=== PATIENT | female | born 1985 | race American Indian/Alaskan Native ===

== ENCOUNTER 2022-07-25 13:18 | Emergency (ER) | payer BC, OTHER ==
[~2022-07-25] VITALS: Ht 167.6 cm; Wt 74.8 kg
[~2022-07-25 13:18] MED LIST: CALCIUM 600 +1 EAC6 PO; DOCUSATE SODIU100 MG PO; PRENAPLUS TABL1 EACH PO; VITAMIN D35000 UNIT; VITAMIN D35000 UNIT PO
[2022-07-25] MEDS ORDERED: VITAMIN B122500 MCG PO (13:34)
[2022-07-25] MEDS ORDERED: VITAMIN C500 M1 PO (13:34)
--- NOTE | 2022-07-25 20:25 | EKG ---
[facility] [address] [facility] [place], [place] [address] Signed Sinus rhythm with marked sinus arrhythmia Otherwise normal ECG No previous ECGs available Confirmed by SPENSER BELCHER MD ([id number]) on 07/25/2022 8:24:44 PM Electronically Signed By: SPENSER BELCHER MD 07/25/222024 PATIENT NAME: DL AUGUSTINE Electrocardiogram DATE OF : 81 PHYSICIAN: SPENSER BELCHER MD REPORT #: [id number] REPORT IS CONFIDENTIAL AND NOT TO BE RELEASED WITHOUT AUTHORIZATION
== END 2022-07-25 14:16 | disposition home or self-care (01) ==
LOC: ED 13:18
DX: R07.89 Other chest pain (principal); Z88.8 Allergy status to other drugs, medicaments and biological substances; Z79.899 Other long term (current) drug therapy
CPT/HCPCS: 71045; 93005; 93010; 99285-25

== ENCOUNTER 2024-12-10 07:10 | Emergency (ER) | payer BC, OTHER ==
[~2024-12-10] VITALS: Ht 167.6 cm; Wt 85.3 kg
[~2024-12-10 07:10] MED LIST changes: +VITAMIN B122500 MCG PO; +VITAMIN C500 M1 PO
[2024-12-10] MEDS ORDERED: OCREVUS300 MG/10 IV (07:24)
[2024-12-10] MEDS ORDERED: SODIUM CHLORIDE 0.9% 1,000 ML IV PRN (07:30)
[2024-12-10] MEDS ORDERED: ondansetron HCL 4 MG/2 ML VIAL IV ONE (07:30)
[2024-12-10] MEDS ORDERED: ONDANSETRON ODT4 MG PO (07:45)
[2024-12-10 07:53] LABS: BASOPHILS 0.3 % (0-2); EOSINOPHILS 0.1 % (0-6); HEMATOCRIT 42.1 % (35.0-50.0); HEMOGLOBIN 14.5 g/dL (12.0-18.0); LYMPHOCYTES 4.5 % (24-44); MCH 28.5 (27-36); MCHC 34.5 g/dl (30-36); MCV 82.7 fl (81-99); MONOCYTES 5.7 % (0-12); NEUTROPHILS 89.4 % (39-80); PLATELET COUNT 178 K/uL (140-440)
[2024-12-10 08:06] LABS: ALBUMIN 3.6 g/dL (3.4-5.0); ALBUMIN/GLOBULIN RATIO 0.88 (1.1-2.4); ANION GAP 16.1 (7-21); BILIRUBIN, TOTAL 0.6 ng/dL (0.2-1.0); BUN/CREATININE RATIO 7.81 (6.0-28.6); CREATININE, SERUM 0.64 mg/dL (0.55-1.02); POTASSIUM 3.1 mmol/L (3.5-5.1); PROTEIN, TOTAL 7.7 g/dL (6.4-8.2)
[2024-12-10] MEDS ORDERED: KETOROLAC TROMETHAMINE 30 MG/ML VIAL IV ONE (08:15)
[2024-12-10 11:01] VITALS: BP 93/66
== END 2024-12-10 11:01 | disposition home or self-care (01) ==
LOC: ED 07:10
PROVIDERS: Emergency Medicine
DX: J10.1 Influenza due to other identified influenza virus with other respiratory manifestations (principal); E86.0 Dehydration; Z88.1 Allergy status to other antibiotic agents; Z79.899 Other long term (current) drug therapy
CPT/HCPCS: 36415; 51798; 80053; 84703; 85025; 96361; 96374; 96375; 99284-25; J1885; J2405; J7030

== ENCOUNTER 2024-12-15 14:30 | Emergency (ER) | payer BC, OTHER ==
[~2024-12-15] VITALS: Ht 167.6 cm; Wt 85.3 kg
[~2024-12-15 14:30] MED LIST changes: +OCREVUS300 MG/10 IV; +ONDANSETRON ODT4 MG PO
--- OUTSIDE RECORDS SUMMARY | 2024-12-15 14:37 | XMS ---
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 [facility] has no Care Guidelines for this patient. [facility]: Visits indicate total known visits. ED/C VISIT TRACKING (12 MO.) 12[facility]15[facility]24 14[facility] [place] [facility] COMPLAINT: - SHORTNESS OF BREATH 12/10/2024 07:10 [facility] [place] TYPE: Emergency COMPLAINT: - FLU SYMPTOMS DIAGNOSES: - Allergy status to other antibiotic agents - Dehydration - Influenza due to other identified influenza virus with other respiratory manifestations - Nausea with vomiting, unspecified - Other care home (current) drug therapy INPATIENT VISIT TRACKING (12 MO.) No inpatient visits to display in this time frame [email or web address]
[2024-12-15] MEDS ORDERED: ALBUTEROL/IPRATROPIUM 3 ML NEB INH PRN (14:45)
[2024-12-15] MEDS ORDERED: IBUPROFEN400 MG PO (14:49)
[2024-12-15 14:58] LABS: BASOPHILS 0.1 % (0-2); EOSINOPHILS 0.4 % (0-6); HEMOGLOBIN 12.7 g/dL (12.0-18.0); LYMPHOCYTES 3.4 % (24-44); MCH 27.3 (27-36); MCHC 33.3 g/dl (30-36); MONOCYTES 2.9 % (0-12); NEUTROPHILS 93.2 % (39-80); PLATELET COUNT 309 K/uL (140-440); RBC 4.64 M/ul (4.3-5.7); RDW 14.7 (10.5-15.0)
[2024-12-15 15:16] LABS: ALBUMIN/GLOBULIN RATIO 0.49 (1.1-2.4); BILIRUBIN, TOTAL 1.1 mg/dL (0.2-1.0); BUN/CREATININE RATIO 12.67 (6.0-28.6); CALCIUM 8.6 mg/dL (8.5-10.1); CREATININE, SERUM 0.71 mg/dL (0.55-1.02); MAGNESIUM 2.2 mg/dL (1.8-2.4); PROTEIN, TOTAL 6.1 g/dL (6.4-8.2)
[2024-12-15] MEDS ORDERED: SODIUM CHLORIDE 0.9% 1,000 ML IV ONE (15:30)
[2024-12-15] MEDS ORDERED: KETOROLAC TROMETHAMINE 30 MG/ML VIAL IV ONE (15:30)
[2024-12-15] MEDS ORDERED: OXYMETAZOLINE HCL 30 ML BTL NAS ONE (15:30)
[2024-12-15] MEDS ORDERED: ondansetron HCL 4 MG/2 ML VIAL IV ONE (15:30)
[2024-12-15] MEDS ORDERED: AZITHROMYCIN/DEXTROSE 500 MG/250 ML PIGGYBACK IV ONE (16:30)
[2024-12-15] MEDS ORDERED: CEFTRIAXONE/SODIUM CHLORIDE 2 GM/100 ML PIGGYBACK IV ONE (16:30)
[2024-12-15] MEDS ORDERED: HYDROCODONE/ACETA 7.5/325 TAB PO ONE (17:00)
[2024-12-15] MEDS ORDERED: HYDROmorphone HCL 1 MG/ML SYR IV PRN (20:00)
[2024-12-15] MEDS ORDERED: metroNIDAZOLE/SODIUM CHLORIDE 500 MG/100 ML PIGGYBACK IV ONE (21:30)
[2024-12-15 22:38] VITALS: BP 110/75
--- NOTE | 2024-12-16 19:25 | EKG ---
[facility] [address] [facility] [place] [address] Signed Sinus tachycardia Otherwise normal ECG When compared with ECG of 25-JUL-2022 13:23, Vent. rate has increased BY 53 BPM T wave inversion now evident in Inferior leads Nonspecific T wave abnormality now evident in Anterior leads Confirmed by Blane Hussein MD ([id number]) on 12/16/2024 7:25:36 PM Electronically Signed By: BLANE HUSSEIN MD 12/16/241924 PATIENT NAME: DL AUGUSTINE Electrocardiogram DATE OF : 81 PHYSICIAN: BLANE HUSSEIN MD REPORT #: [id number] REPORT IS CONFIDENTIAL AND NOT TO BE RELEASED WITHOUT AUTHORIZATION
== END 2024-12-15 22:50 | disposition short-term general hospital (02) ==
LOC: ED 14:30
PROVIDERS: Emergency Medicine
DX: J18.9 Pneumonia, unspecified organism (principal); J90 Pleural effusion, not elsewhere classified; H65.92 Unspecified nonsuppurative otitis media, left ear; Z88.1 Allergy status to other antibiotic agents; Z79.899 Other long term (current) drug therapy
CPT/HCPCS: 36415; 71045; 71260; 76604; 80053; 83605; 83735; 84484; 84703; 85025; 85060; 85379; 87040; 87186; 94640; 96361; 96367; 99285-25; A9270; J0456; J0696; J1171; J1885; J2405; J7030; Q9967

== ENCOUNTER 2025-01-14 09:33 | Emergency (ER) | payer BC, OTHER ==
[~2025-01-14] VITALS: Ht 167.6 cm; Wt 79.4 kg
--- OUTSIDE RECORDS SUMMARY | ~2025-01-14 | XMS | Continuity of Care Document ---
Demographics + + + | Address | [address] | | | [place] [address] | + + + | Preferred Language | Unknown | + + + | Marital Status | Unknown | + + + | Taoism Affiliation | Unknown | + + + | Race | or | + + + | Ethnic Group | Not or | + + + Author + + + | Author | [facility] | + + + | Organization | [facility] | + + + | Address | [address] | | | [place] [address] | + + + | Phone | | + + + Care Team Providers + + + + | Care Bird Tender Name | Role | Phone | + [...]
[~2025-01-14 09:33] MED LIST changes: +IBUPROFEN400 MG PO
--- OUTSIDE RECORDS SUMMARY | 2025-01-14 09:36 | XMS ---
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 Sandy VISIT COUNT (12 MO.) 3 [facility] TOTAL 3 NOTE: Visits indicate total known visits. 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 TYPE: Cardiology COMPLAINT: - PNA DIAGNOSES: - Pneumonia, unspecified organism - Pneumonia, unspecified organism - Pyothorax without fistula [email or web address]
[2025-01-14] MEDS ORDERED: CEFTRIAXONE2 G2 IM (09:45)
[2025-01-14] MEDS ORDERED: EXPECTORANT200 MG PO (10:36)
[2025-01-14 10:44] VITALS: BP 109/70
== END 2025-01-14 10:45 | disposition home or self-care (01) ==
LOC: ED 09:33
DX: I88.9 Nonspecific lymphadenitis, unspecified (principal); Z88.1 Allergy status to other antibiotic agents
CPT/HCPCS: 71046; 99283-25

== ENCOUNTER 2025-01-16 09:32 | Emergency (ER) | payer BC, OTHER ==
[~2025-01-16] VITALS: Ht 167.6 cm; Wt 81.2 kg
--- OUTSIDE RECORDS SUMMARY | ~2025-01-16 | XMS | Continuity of Care Document ---
Demographics + + + | Address | [address] | | | [place] [address] | + + + | Preferred Language | Unknown | + + + | Marital Status | Unknown | + + + | Voodoo Affiliation | Unknown | + + + | Race | or | + + + | Ethnic Group | Not or | + + + Author + + + | Author | [facility] | + + + | Organization | [facility] | + + + | Address | [address] | | | [place] [address] | + + + | Phone | | + + + Care Team Providers + + + + | Care Sequins Spooler Name | Role | Phone | + + + + Unavailable | Unavailable | + + + + Unavailable | Unavailable | + + + + Allergies No information. Encounters No information. Functional Status No information. Immunizations No information. Medications No information. Problems + + + + | date | description | facility | + + + + | 2024-12-24 11:34:09 | Pneumonia, unspecified | [facility] | | | organism | | + + + + | 2024-12-24 11:34:09 | Pyothorax without fistula | [facility] | + + + + | 2025-01-06 11:50:49 | Pneumonia, unspecified | [facility] | | | organism | | + + + + | 2025-01-06 13:11:29 | Encounter for other | [facility] | | | specified surgical | | | | aftercare | | + + + + | 2025-01-07 00:53:51 | Pneumonia, unspecified | [facility] | | | organism | | + + + + Procedures No information. Results/Labs No information. Social History +--------+ + + | date | description | facility | +--------+ + + Vital Signs No information."
[~2025-01-16 09:32] MED LIST changes: +CEFTRIAXONE2 G2 IM; +EXPECTORANT200 MG PO
--- OUTSIDE RECORDS SUMMARY | 2025-01-16 09:38 | XMS ---
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 - 2 Visits in 30 Days CARE PROVIDERS NIRAJ RAMIREZ Physician Account Services Representative 01/16/2025-Current PHONE: Unknown RACHELE MCKEON Nurse Practitioner: Family Current PHONE: [phone] [facility] has no Care Guidelines for this patient. Sandy VISIT COUNT (12 MO.) [address] [place] [address] TOTAL 4 NOTE: Visits indicate total known visits. ED/UCC VISIT TRACKING (12 MO.) 01/16/2025 09:32 [facility] [place] TYPE: Emergency COMPLAINT: - NECK SWELLING 01/14/2025 09:33 [facility] [place] TYPE: Emergency COMPLAINT: - NECK PAIN DIAGNOSES: - Allergy status to other antibiotic agents - Cervicalgia - Nonspecific lymphadenitis, unspecified 12/15/2024 14:[address] 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 TYPE: Cardiology COMPLAINT: - PNA DIAGNOSES: - Pneumonia, unspecified organism - Pneumonia, unspecified organism - Pyothorax without fistula [email or web address]
[2025-01-16 11:50] LABS: BASOPHILS 0.5 % (0-2); EOSINOPHILS 0.1 % (0-6); HEMATOCRIT 36.4 % (35.0-50.0); HEMOGLOBIN 12.3 g/dL (12.0-18.0); LYMPHOCYTES 17.1 % (24-44); MCH 27.9 (27-36); MCHC 33.7 g/dl (30-36); MONOCYTES 19.1 % (0-12); NEUTROPHILS 63.2 % (39-80); PLATELET COUNT 282 K/uL (140-440); RBC 4.39 M/ul (4.3-5.7); RDW 15.7 (10.5-15.0)
[2025-01-16 12:05] LABS: ALBUMIN 3.4 g/dL (3.4-5.0); ALBUMIN/GLOBULIN RATIO 1.06 (1.1-2.4); BILIRUBIN, TOTAL 0.2 mg/dL (0.2-1.0); BUN/CREATININE RATIO 15.62 (6.0-28.6); CALCIUM 8.9 mg/dL (8.5-10.1); CREATININE, SERUM 0.32 mg/dL (0.55-1.02); PROTEIN, TOTAL 6.6 g/dL (6.4-8.2)
[2025-01-16] MEDS ORDERED: HEParin SOD (PORCINE) 500 UNIT/5 ML ML IV ONE (16:15)
[2025-01-16 16:45] VITALS: BP 102/74
== END 2025-01-16 16:45 | disposition home or self-care (01) ==
LOC: ED 09:32
PROVIDERS: Emergency Medicine
DX: K11.20 Sialoadenitis, unspecified (principal); J85.2 Abscess of lung without pneumonia; G35 Multiple sclerosis; Z88.1 Allergy status to other antibiotic agents; Z79.899 Other long term (current) drug therapy
CPT/HCPCS: 36415; 70480; 70491; 71260; 80053; 84703; 85025; 93971; 99284-25; Q9967